=== PATIENT | male | born 1965 | race Two or more races ===

== ENCOUNTER → 2017-01-10 | Outpatient (REF) | payer OTHER ==
[~2017-01-10] MED LIST: FURO20TA2 PO; LISI40TAB PO; OMEP20CA3 PO; POTA10TA16 PO; PROA1AER INH
== END ==
LOC: M LAB REF 16:35
PROVIDERS: ATTEND Surgery
DX: I87.311 Chronic venous hypertension (idiopathic) with ulcer of right lower extremity (principal)

== ENCOUNTER → 2017-01-13 | Day surgery (SDC) | payer OTHER ==
[~2017-01-13] VITALS: Ht 177.8 cm; Wt 127.0 kg
[~2017-01-13] MED LIST changes: +BUPIVACAINE/EPIN 0.25% 30 ML VIAL As Ordered ONE; +GLYCOPYRROLATE INJ 0.2 MG/ML 2 ML VIAL As Ordered ONE; +LIDOCAINE 2% INJ 100 MG/5 ML SDV (FOR ANES.) As Ordered ONE; +LR 1,000 ML IV SCH; +METOCLOPRAMIDE INJ 10MG/2ML VIAL (J2765) IV PRN; +MIDAZOLAM INJ 2 MG/2 ML VIAL (J2250) As Ordered ONE; +MORPHINE 2 MG/ML 1ML SYRINGE IV PRN; +NEOSTIGMINE 1MG/ML 5 ML SYRINGE (J2710) As Ordered ONE; +NORCO, ANEXSIA 5/325MG TABLET (HYDROcodone/ACETAMINOPHEN) PO PRN; +ONDANSETRON 4MG/2ML VIAL (J2405) As Ordered ONE; +ONDANSETRON 4MG/2ML VIAL (J2405) IV PRN; +PERCOCET 5MG/325MG TAB As Ordered ONE; +PERCOCET 5MG/325MG TAB PO PRN; +PROPOFOL 200 MG/20 ML VIAL As Ordered ONE; +ROCURONIUM BROMIDE 50 MG/5 ML VIAL As Ordered ONE; +ceFAZolin 1GM INJ (J0690) As Ordered ONE; +ceFAZolin SOD 1 GM in D5W MINI-BAG PLUS 50 ML IV ONE; +fentaNYL 100 MCG/2 ML INJECTION (J3010) As Ordered ONE
[2017-01-13] MEDS: fentaNYL 100 MCG/2 ML INJECTION (J3010) IV PRN ×2 (15:57→16:02)
[2017-01-13 16:50] VITALS: BP 146/67
--- NOTE | 2017-01-13 18:38 | ECGEPIP ---
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
--- NOTE | 2017-02-04 14:23 | RO ---
DATE OF PROCEDURE: 01/13/2017 PREOPERATIVE DIAGNOSIS: Umbilical hernia. POSTOPERATIVE DIAGNOSIS: Umbilical hernia. PROCEDURE: Umbilical hernia repair with ventral patch (mesh). SURGEON: Dr. Romeo Grigbsy SALES PERSON: ANESTHESIA: General endotracheal anesthesia. ESTIMATED BLOOD LOSS: Minimal. FLUIDS: Crystalloid. BRIEF PROCEDURE SUMMARY: The patient was brought to the operating room and was given general anesthesia. After adequate anesthesia and preoperative antibiotics were given, the patient was prepped and draped in sterile fashion. Next a supraumbilical incision was made with skin knife. Electrocautery was used to cut through dermis and underlying subcutaneous tissue. The hernia sac was circumferentially evaluated and dissected out from surrounding tissue. Eventually the base of the hernia was dissected off surrounding tissue and the hernia was dissected off the umbilicus itself at this time. Once this was able to be reformed, the base of the hernia sac was transected at the level of the fascia. Once the peritoneum was entered, care was used by using cautery against my finger on the hernia sac wall circumferentially. The hernia sac contents which was omentum was reduced into the abdominal cavity. There was some preperitoneal fat that I was able to transect as well and deliver that into the fascial defect. Once this was removed circumferentially, I was able to palpate the abdominal wall and revealed a good smooth abdominal wall, although there was a great deal of adipose tissue in this area, it is relatively smooth circumferentially. Thus a ventral patch was able to be placed in the peritoneal cavity and after making sure that this was abutting the peritoneum circumferentially, [id number] #0 Ethibond sutures were used close the fascia in multiple [id number] closures. The tails of mesh had been previously sewed superiorly and inferiorly with #0 Ethibond as well. Once this was performed, #3-0 Vicryl was used to tack the umbilicus down to the fascia and #3-0 Vicryl was used to close the dermis, #4-0 Vicryl was used to approximate the skin. Steri-Strips and dry sterile dressing was applied. The patient was awakened, extubated, brought to the recovery room awake, alert, hemodynamically stable. Sponge and needle counts correct times two.
== END | disposition home or self-care (01) ==
LOC: M SDC 09:59
PROVIDERS: ATTEND Surgery
DX: K42.9 Umbilical hernia without obstruction or gangrene (principal); I10 Essential (primary) hypertension; R23.3 Spontaneous ecchymoses; S81.801D Unspecified open wound, right lower leg, subsequent encounter; E66.01 Morbid (severe) obesity due to excess calories; Z79.899 Other long term (current) drug therapy
CPT/HCPCS: 49585; 88302; 93005; C1781; J0690; J2250; J2405; J2710; J3010

== ENCOUNTER → 2018-05-28 | Outpatient (CLI) | payer OTHER | LOC: M RAD 10:35 | DX: I87.311 Chronic venous hypertension (idiopathic) with ulcer of right lower extremity (principal) | CPT/HCPCS: 93971 ==

== ENCOUNTER → 2020-10-09 | Outpatient (CLI) | payer OTHER ==
[~2020-10-09] MED LIST changes: -BUPIVACAINE/EPIN 0.25% 30 ML VIAL As Ordered ONE; -GLYCOPYRROLATE INJ 0.2 MG/ML 2 ML VIAL As Ordered ONE; -LIDOCAINE 2% INJ 100 MG/5 ML SDV (FOR ANES.) As Ordered ONE; +LISI40TA PO; -LISI40TAB PO; -LR 1,000 ML IV SCH; -METOCLOPRAMIDE INJ 10MG/2ML VIAL (J2765) IV PRN; -MIDAZOLAM INJ 2 MG/2 ML VIAL (J2250) As Ordered ONE; -MORPHINE 2 MG/ML 1ML SYRINGE IV PRN; -NEOSTIGMINE 1MG/ML 5 ML SYRINGE (J2710) As Ordered ONE; -NORCO, ANEXSIA 5/325MG TABLET (HYDROcodone/ACETAMINOPHEN) PO PRN; +OMEP1CAP73 PO; -OMEP20CA3 PO; -ONDANSETRON 4MG/2ML VIAL (J2405) As Ordered ONE; -ONDANSETRON 4MG/2ML VIAL (J2405) IV PRN; -PERCOCET 5MG/325MG TAB As Ordered ONE; -PERCOCET 5MG/325MG TAB PO PRN; -PROA1AER INH; +PROAAER10 INH; -PROPOFOL 200 MG/20 ML VIAL As Ordered ONE; -ROCURONIUM BROMIDE 50 MG/5 ML VIAL As Ordered ONE; -ceFAZolin 1GM INJ (J0690) As Ordered ONE; -ceFAZolin SOD 1 GM in D5W MINI-BAG PLUS 50 ML IV ONE; -fentaNYL 100 MCG/2 ML INJECTION (J3010) As Ordered ONE
--- NOTE | 2020-10-09 08:26 | REP ---
INDICATION: RT NON PRESSURE CHTONIC ULCER OF RT LOWER EXT. Evaluate for reflux. Rule out DVT. COMPARISON: None. TECHNIQUE: Right lower extremity duplex venous sonography with reflux evaluation. FINDINGS: The deep veins are anechoic and fully compressible from the groin to the popliteal fossa in the right lower extremity. Color flow imaging is homogeneous. Spectral Doppler interrogation demonstrates intact respiratory variation in flow and normal manual augmentation of flow. There is no evidence of deep vein thrombosis. Reflux sonography: There is no observed or elicited deep or superficial system reflux in the right lower extremity. Greater saphenous vein measures 6.2 mm in anteroposterior dimension at the saphenofemoral junction, 4.9 mm at mid thigh, and 5.0 mm at the knee. And anterior accessory greater saphenous vein is present measuring 4.4 mm. No reflux. IMPRESSION: Negative right lower extremity duplex venous ultrasound. No evidence of deep vein thrombosis. No evidence of right lower extremity deep or superficial system reflux. <Electronically signed by Greg Orozco > 10/09/20 [id number]
== END ==
LOC: M RAD 07:24
PROVIDERS: ATTEND Surgery
DX: L97.812 Non-pressure chronic ulcer of other part of right lower leg with fat layer exposed (principal)

== ENCOUNTER → 2020-11-10 | Outpatient (POV) | payer OTHER ==
--- NOTE | 2020-11-12 13:30 | IRCOV ---
[facility] IR Consult Office Visit IR Consult Office Visit DATE: Nov 10, 2020 Patient agreed to this telephone consultation. I spent 30 minutes reviewing patient's records, imaging and talking to the patient. REASON FOR CONSULTATION/CHIEF COMPLAINT: Right lower extremity venous stasis ulcer. HISTORY OF PRESENT ILLNESS: 55-year-old male states his right lower extremity has been chronically swollen for 12 years. He gets large shallow ulcers in the right lower extremity of which he's had 5-6 over the past 12 years. These typically last 6-8 months and are resistant to healing. He currently has an ulcer on the lopez for which he is seeing wound care. He states the skin on his right lower extremity is brown and discolored all the time and his skin weeps. He states his left lower extremity swells but he does not have ulcers of the left lower extremity. He denies prior deep vein thrombosis or venous intervention. He denies intermittent claudication or rest pain. ALLERGIES: Please see below. HOME MEDICATIONS: Please see below. PAST MEDICAL HISTORY: Anemia Asthma Sleep apnea Hypertension Lymphedema PAD PAST SURGICAL HISTORY: Umbilical hernia repair Right knee surgery FAMILY HISTORY: Noncontributory SOCIAL HISTORY: Nonsmoker. Denies alcohol or drugs. REVIEW OF SYSTEMS: Otherwise negative. PHYSICAL EXAMINATION: No video on patient side. LABORATORY DATA: No recent labs. Imaging: I personally reviewed the 10/09/2020, 05/28/2018, 07/26/2016, 05/24/2016 right lower extremity venous reflux studies and I see no significant venous reflux in the greater saphenous vein or lesser saphenous vein. ASSESSMENT/PLAN: 55-year-old male with long-standing right lower extremity venous hypertension and venous stasis ulcers refractory to healing. He does not demonstrate GSV reflux on ultrasound. He is referred for iliac and central venous drainage evaluation. This may be performed with venography. I discussed the risks and benefits of the the procedure with the patient and patient would like to proceed. We'll schedule the patient for this procedure. Thank you for this referral. CC Dr. Olivier Allergies Coded Allergies: No Known Allergies (Unverified , 01/06/17) Home Medications Scheduled Furosemide (Furosemide), 20 MG PO BID, (Reported) Lisinopril (Lisinopril), 40 MG PO DAILY, (Reported) Scheduled PRN Albuterol Sulfate (Proair Hfa), 2 PUFF INH PRN PRN for WHEEZING, (Reported) Omeprazole (Omeprazole), 20 MG PO PRN PRN for HEARTBURN, (Reported) Potassium Chloride (Potassium Chloride), 10 MEQ PO PRN PRN for LEG CRAMPS, (Reported) YONG SANTOS MD Nov 12, 2020 13:30
== END ==
LOC: M TMIRPOV 09:44
PROVIDERS: ATTEND Radiology Diagnostic Radiology
DX: I87.311 Chronic venous hypertension (idiopathic) with ulcer of right lower extremity (principal); I87.302 Chronic venous hypertension (idiopathic) without complications of left lower extremity; I89.0 Lymphedema, not elsewhere classified; I10 Essential (primary) hypertension; I73.9 Peripheral vascular disease, unspecified; J45.909 Unspecified asthma, uncomplicated; G47.30 Sleep apnea, unspecified; D64.9 Anemia, unspecified

== ENCOUNTER → 2020-11-30 | Outpatient (CLI) | payer OTHER ==
[~2020-11-30] MED LIST changes: +ISOVUE-300 61% 50ML VIAL As Ordered ONE; +LIDOCAINE 1% MDV 20ML VIAL As Ordered ONE; +MIDAZOLAM INJ 2MG/2ML VIAL (J2250 PER 1MG) As Ordered ONE; +diphenhydrAMINE 50MG/ML VIAL (J1200) As Ordered ONE; +fentaNYL 100 MCG/2 ML INJECTION (J3010) As Ordered ONE
--- NOTE | 2020-11-30 08:27 | IRHP ---
[facility] IR Pre-Procedure H & P General Date of Service: Nov 30, 2020 Procedure: Same Day Surgery Interval History and Physical I have seen the patient and reviewed last H & P performed within 30 days. There is no significant interval change. History of Present Illness Chief Complaint The patient is a 55-year-old male admitted with a reason for visit of Iliac Stenosis, Venous Htn. PRE-PROCEDURE DIAGNOSIS: venous HTn HEART: normal rate. LUNGS: Normal breathing at rest. ASA Classification ASA Classification: III-Severe systemic dis. Mallampati Score: II NPO: Yes Problems with prior sedation: No Obstructive Sleep Apnea: No Plan moderate sedation Allergies Coded Allergies: No Known Allergies (Unverified , 01/06/17) Home Medications Scheduled Lisinopril (Lisinopril), 40 MG PO DAILY, (Reported) Scheduled PRN Albuterol Sulfate (Proair Hfa), 2 PUFF INH PRN PRN for WHEEZING, (Reported) Omeprazole (Omeprazole), 20 MG PO PRN PRN for HEARTBURN, (Reported) Potassium Chloride (Potassium Chloride), 10 MEQ PO PRN PRN for LEG CRAMPS, (Reported) Discontinued Medications Furosemide (Furosemide), 20 MG PO BID, (Reported) Discontinued Reason: Pt states not taking VS, I&O, 24H, Fishbone Vital Signs/I&O Vital Signs Date Time Temp Pulse Resp B/P (MAP) Pulse Ox O2 Delivery O2 Flow Rate FiO2 11/30/20 07:50 98.8 91 18 93 Room Air Laboratory Data 24H LABS Laboratory Tests 2 11/30/20 08:05: CBC/BMP YONG SANTOS MD Nov 30, 2020 08:27
[2020-11-30 08:30] LABS: HEMATOCRIT 29.3 % (42.0-52.0); HEMOGLOBIN 9.5 g/dl (13.5-17.5); MEAN CORPUSCULAR HEMOGLOBIN 32.8 pg (27.0-33.0); MEAN CORPUSCULAR HGB CONC 32.4 g/dl (32.0-36.5); WHITE BLOOD COUNT 3.2 10^3/uL (4.0-10.0)
[2020-11-30 08:53] LABS: PLATELET COUNT, AUTOMATED 63 10^3/uL (150-450)
[2020-11-30 08:58] LABS: CALCIUM LEVEL 8.3 MG/DL (8.5-10.1); CREATININE FOR GFR 1.41 MG/DL (0.70-1.30); GLOMERULAR FILTRATION RATE 55.2 (>56); POTASSIUM SERUM 3.8 MEQ/L (3.5-5.1)
[2020-11-30 11:15] VITALS: BP 142/69
--- NOTE | 2020-12-03 09:59 | POST-OPPD ---
Postoperative Procedure Note Date Of Procedure: Nov 30, 2020 Time Of Procedure: 16:00 IR RIGHT ILIAC VENOGRAM. IR INFERIOR VENACAVOGRAM. IR MODERATE SEDATION. Clinical Information:Right lower extremity venous hypertension with nonhealing venous stasis ulcers. Negative for saphenous incompetence. Referred for evaluation of central venous drainage. Physician: Dr. Baker. Procedure: The patient was advised of the benefits, risks, and alternatives of the procedure and informed consent was obtained. A time out was performed with verification of the patient's name, MRN, site of procedure, and type of procedure to be performed. The patient was positioned in the supine position on the angiographic table. The site was prepped and draped in the usual sterile fashion. Moderate sedation was performed by the physician including the presence of an independent trained RN who, assisted in monitoring the patient's level of consciousness and physiological status. Following the administration of fentanyl and Versed, the physician spent 45 minutes of continuous [id number] time with the patient. Preliminary ultrasound of the right groin was performed, demonstrating patent and compressible right common femoral vein. The right common femoral vein was accessed under ultrasound guidance using a micropuncture kit. A 0.035 wire was advanced into the inferior vena cava, under fluoroscopic guidance. The micro-sheath was exchanged over the wire for a short vascular sheath. A right iliac venogram was performed. This demonstrate widely patent central drainage from the right lower extremity via the right common iliac vein and inferior vena cava. No irregularity, no stenosis no obstruction. No filling of cross pelvic collaterals. Ultrasound of the right femoral vein demonstrates patent and compressible right femoral vein. The right femoral vein was then accessed under ultrasound guidance in the upper thigh. An 018 wire was advanced into the iliac vein and the needle was exchanged for micro-sheath. If femoral venogram was performed through the micro-sheath and this demonstrates widely patent flow in the femoral and common femoral vein with no irregularity, collateralization or reflux. Both accesses were removed, pressure held hemostasis achieved. A sterile dressing was applied to the sites. The patient tolerated the procedure well and was returned to the PRU in stable condition. EBL: < 5 mL. Complications:None. Conclusions: Right lower extremity and central venogram demonstrates widely patent femoral vein, external iliac vein and common iliac vein and drainage via the inferior vena cava with no central obstruction. Thank you for this referral. Cc YONG Abreu MD Dec 03, 2020 09:59
== END ==
LOC: M IRPRO 07:32
PROVIDERS: ATTEND Radiology Diagnostic Radiology
DX: I87.301 Chronic venous hypertension (idiopathic) without complications of right lower extremity (principal); I10 Essential (primary) hypertension; J45.909 Unspecified asthma, uncomplicated; I73.9 Peripheral vascular disease, unspecified; G47.30 Sleep apnea, unspecified
CPT/HCPCS: 36010; 36011; 75820; 75825; 80048; 85027; 85049; 85055; 99152; 99153; C1769; C1887; C1894; J1200; J1644; J2250; J3010; Q9967

== ENCOUNTER → 2022-01-21 | Outpatient (CLI) | payer OTHER ==
[~2022-01-21] MED LIST changes: -ISOVUE-300 61% 50ML VIAL As Ordered ONE; -LIDOCAINE 1% MDV 20ML VIAL As Ordered ONE; -LISI40TA PO; +LISI40TA4 PO; -MIDAZOLAM INJ 2MG/2ML VIAL (J2250 PER 1MG) As Ordered ONE; +POTA-149 PO; -POTA10TA16 PO; +PROHANCE 279.3MG/ML 15ML VIAL ONE; +PROHANCE 279.3MG/ML 5ML VIAL ONE; -diphenhydrAMINE 50MG/ML VIAL (J1200) As Ordered ONE; -fentaNYL 100 MCG/2 ML INJECTION (J3010) As Ordered ONE
== END ==
LOC: M PLAIMG 08:10
PROVIDERS: ATTEND Family Medicine
DX: M25.551 Pain in right hip (principal)
CPT/HCPCS: 73723; A9576

== ENCOUNTER 2022-09-21 09:15 | Outpatient (RCR) | payer OTHER ==
[~2022-09-21 09:15] MED LIST changes: -PROHANCE 279.3MG/ML 15ML VIAL ONE; -PROHANCE 279.3MG/ML 5ML VIAL ONE
== END 2022-09-28 23:59 | disposition home or self-care (01) ==
LOC: M PT 09:15
PROVIDERS: ATTEND Family Medicine
DX: I89.0 Lymphedema, not elsewhere classified (principal)

== ENCOUNTER → 2022-09-30 | Outpatient (CLI) | payer OTHER ==
[~2022-09-30] MED LIST changes: +ISOVUE-370 76% 100ML VIAL As Ordered ONE
== END ==
LOC: M RAD 08:10
PROVIDERS: ATTEND Internal Medicine Pulmonary Disease
DX: R06.00 Dyspnea, unspecified (principal); J98.11 Atelectasis

== ENCOUNTER 2022-10-06 10:45 | Outpatient (RCR) | payer OTHER ==
[~2022-10-06 10:45] MED LIST changes: -ISOVUE-370 76% 100ML VIAL As Ordered ONE
== END 2022-10-29 ==
LOC: M PT 10:45
PROVIDERS: ATTEND Family Medicine
DX: I89.0 Lymphedema, not elsewhere classified (principal)

== ENCOUNTER 2022-11-25 10:35 | Outpatient (RCR) | payer OTHER | END 2022-11-29 | LOC: M PT 10:35 | PROVIDERS: ATTEND Family Medicine | DX: I89.0 Lymphedema, not elsewhere classified (principal) ==

== ENCOUNTER 2022-12-26 12:45 | Outpatient (RCR) | payer OTHER | END 2022-12-27 | LOC: M PT 12:45 | PROVIDERS: ATTEND Family Medicine | DX: R60.0 Localized edema (principal) ==

== ENCOUNTER 2023-02-27 19:39 | Emergency (ER) | payer OTHER, SELFPAY ==
[~2023-02-27] VITALS: Ht 177.8 cm; Wt 137.0 kg
[2023-02-27] MEDS ORDERED: LIDOCAINE 2% 5ML JELLY UROJET TOP ONE (19:50)
[2023-02-27] MEDS ORDERED: NS 1,000 ML IV ONE ×4 (19:50→23:15)
[2023-02-27] MEDS ORDERED: DEXTROSE 50% 50ML SYRINGE IV STA ×2 (19:56→22:02)
[2023-02-27] MEDS ORDERED: DEXTROSE 50% 50ML SYRINGE As Ordered ONE (19:57)
[2023-02-27 20:03] LABS: ABG BASE EXCESS -8.1 (-2.0-2.0); ABG HCO3 17.1 MMOL/L (22.0-26.0); ABG O2 SATURATION 98.1 % (95.0-99.0); ABG PARTIAL PRESSURE CO2 33.1 mmHg (35.0-45.0); ABG PARTIAL PRESSURE O2 115.4 mmHg (75.0-100.0); ABG STANDARD HCO3 17.8 MMOL/L. (22.0-26.0); ABG TOTAL CO2 18.1 MMOL/L (22.0-29.0)
[2023-02-27 20:06] LABS: BASO % 0.1 % (0.0-1.0); EOS % 0.3 % (0.0-3.0); HEMATOCRIT 21.8 % (42.0-52.0); LYMPH # 0.6 10^3/uL (1.5-5.0); LYMPH % 4.5 % (24.0-44.0); MEAN CORPUSCULAR HEMOGLOBIN 30.1 pg (27.0-33.0); MEAN CORPUSCULAR HGB CONC 28.9 g/dl (32.0-36.5); MEAN CORPUSCULAR VOLUME 104.3 fl (80.0-96.0); MONO % 13.3 % (2.0-8.0); NEUTROPHILS # 10.4 10^3/uL (1.5-8.5); NEUTROPHILS % 81.3 % (36.0-66.0); RED BLOOD COUNT 2.09 10^6/uL (4.30-6.10); WHITE BLOOD COUNT 12.8 10^3/uL (4.0-10.0)
[2023-02-27 20:08] LABS: HEMOGLOBIN 6.3 g/dl (13.5-17.5); MONO # 1.7 10^3/uL (0.0-0.8); PLATELET COUNT, AUTOMATED 93 10^3/uL (150-450)
[2023-02-27 20:16] LABS: INR 1.6; PROTHROMBIN TIME 19.3 SECONDS (12.5-14.5)
[2023-02-27 20:17] LABS: PARTIAL THROMBOPLASTIN TIME 39.1 SECONDS (24.8-34.2)
[2023-02-27 20:38] LABS: CK-MB VALUE MASS 126.8 NG/ML (<3.6)
[2023-02-27 20:40] LABS: ALBUMIN 1.4 G/DL (3.2-5.2); BILIRUBIN,DIRECT 1.1 MG/DL (<0.4); BILIRUBIN,TOTAL 1.9 MG/DL (0.3-1.2); CALCIUM LEVEL 8.2 MG/DL (8.5-10.1); CREATININE FOR GFR 4.1 MG/DL (0.70-1.30); POTASSIUM SERUM 4.7 MMOL/L (3.5-5.1); TOTAL PROTEIN 6.4 G/DL (5.7-8.2)
[2023-02-27 20:41] LABS: RSV AMPLIFICATION NEGATIVE (NEGATIVE)
[2023-02-27 20:42] LABS: THYROID STIMULATING HORMONE 3.064 uIU/ML (0.55-4.78)
[2023-02-27 20:59] LABS: MB/CK RELATIVE INDEX 6.41 (< OR =4)
[2023-02-27 22:22] VITALS: BP 110/57
[2023-02-27 22:41] VITALS: BP 113/58
[2023-02-27 23:05] LABS: CK-MB VALUE MASS 79.9 NG/ML (<3.6)
[2023-02-27 23:12] LABS: MB/CK RELATIVE INDEX 6.25 (< OR =4)
[2023-02-28] MEDS ORDERED: D5W/0.45% SODIUM CHLORIDE 1,000 ML IV SCH (00:25)
[2023-02-28 00:52] VITALS: BP 110/52
[2023-02-28 02:20] VITALS: O2SAT 96
[2023-02-28 02:29] VITALS: BP 86/41
[2023-02-28 02:46] VITALS: BP_SYST 82; BP_SYST 84; BP_DIAS 41; BP_DIAS 47
[2023-02-28 03:55] LABS: APPEARANCE, URINE TURBID (CLEAR); BACTERIA, URINE AUTO 3+ (NEGATIVE); BILIRUBIN, URINE AUTO NEGATIVE (NEGATIVE); BLOOD, URINE BLOOD 2+ (NEGATIVE); COLOR, URINE YELLOW (YELLOW); GLUCOSE, URINE (UA) AUTO NEGATIVE (NEGATIVE); KETONE, URINE AUTO TRACE mg/dL (NEGATIVE); LEUKOCYTE ESTERASE, URINE AUTO 2+ (NEGATIVE); NITRITE, URINE AUTO NEGATIVE (NEGATIVE); PROTEIN, URINE AUTO 3+ mg/dL (NEGATIVE); RBC, URINE AUTO 44 /HPF (0-3); SPECIFIC GRAVITY URINE AUTO 1.013 (1.002-1.035); SQUAMOUS EPITHELIAL CELL UR AU 3 /HPF (0-6); WBC, URINE AUTO TNTC /HPF (0-3)
[2023-02-28 05:00] VITALS: BP 86/47
[2023-02-28] MEDS ORDERED: NOREPINEPHRINE 4MG IN D5 250ML 4 MG in IV 1 EA IV SCH ×2 (06:00)
[2023-02-28 06:15] VITALS: BP 100/50
== END 2023-02-28 06:53 | disposition short-term general hospital (02) ==
LOC: M ED 19:39 → EDBD 19:39 → M ED 02-28 06:53
DX: E16.2 Hypoglycemia, unspecified (principal); T68.XXXA Hypothermia, initial encounter; X58.XXXA Exposure to other specified factors, initial encounter; Y92.89 Other specified places as the place of occurrence of the external cause; Y93.89 Activity, other specified; Y99.8 Other external cause status; N17.9 Acute kidney failure, unspecified; D64.9 Anemia, unspecified; I50.20 Unspecified systolic (congestive) heart failure; I10 Essential (primary) hypertension
CPT/HCPCS: 36430; 36600; 51702; 70450; 71045; 71250; 72125; 72170; 74176; 80047; 80048; 80076; 81001; 82550; 82553; 82803; 83605; 83880; 84443; 84484; 85025; 85049; 85055; 85610; 85730; 86850; 86900; 86901; 86920; 87040; 87631; 93005; 93041; 94760; 96365; 96366; 96367; 96375; 96376; 99285; P9016